=== PATIENT | female | born 1950 | race Caucasian/White ===

== ENCOUNTER 2019-03-08 12:10 | Emergency (ER) | payer OTHER, MEDICARE, MEDICAID ==
[2019-03-08] MEDS ORDERED: TYLENOL 325 MG PO STA (13:27)
--- NOTE | 2019-03-08 13:34 | ERPHSYRPT ---
- History of Present Illness Time Seen by Provider: 03/08/19 13:19 Source: patient Exam Limitations: no limitations Patient Subjective Stated Complaint: tripped on sidewalk landing on right side of face. abrasion to nose. hands scraped. no LOC dentuires intact Triage Nursing Assessment: alert and oriented with c/o falling after tripping on sidewalk. fell onto right face abrasions to bilateral hands. states dentures intact. noted old blood at mouth. large swelling to right cheel area with bruising Physician History: Pt states, she tripped on sidewalk before coming, hit her right cheek, and left thumb, not sure about LOC, denies severe headaches, nausea, vomiting, chest pain , SOB, other injury or complaints, she was ambulating. Occurred: just prior to arrival Reason for Fall: tripped Injuries/Pain Location: head, face Loss of Consciousness: brief (seconds) Quality: aching Severity of Pain-Max: mild Severity of Pain-Current: mild Modifying Factors: Improves With: nothing Associated Symptoms (Fall): denies symptoms Allergies/Adverse Reactions: No Known Drug Allergies Allergy (Unverified 03/08/19 13:36) Immunizations Up to Date: No - Review of Systems Constitutional: No Symptoms Eyes: No Symptoms Ears, Nose, & Throat: Other (right cheek swelling and pain) Respiratory: No Symptoms Cardiac: No Symptoms Abdominal/Gastrointestinal: No Symptoms Genitourinary Symptoms: No Symptoms Musculoskeletal: Other (left thenar painful.) Skin: Other (abrasions, ecchymosis left thenar and right anterior knee.) Neurological: No Symptoms All Other Systems: Reviewed and Negative - Past Medical History Pertinent Past Medical History: Yes Neurological History: No Pertinent History ENT History: No Pertinent History Psycho-Social History: Anxiety - Past Surgical History Past Surgical History: Yes Neuro Surgical History: No Pertinent History Cardiac: No Pertinent History Respiratory: No Pertinent History Gastrointestinal: No Pertinent History Genitourinary: No Pertinent History Musculoskeletal: No Pertinent History Female Surgical History: No Pertinent History - Social History Smoking Status: Never smoker Exposure to second hand smoke: No Drug Use: none Patient Lives Alone: No - Female History Hx Now: No - Nursing Vital Signs Nursing Vital Signs: Initial Vital Signs Temperature 97.5 F 03/08/19 12:47 Pulse Rate 88 03/08/19 12:47 Respiratory Rate 18 03/08/19 12:47 Blood Pressure 147/81 03/08/19 12:47 O2 Sat by Pulse Oximetry 97 03/08/19 12:47 Pain Scale Pain Intensity 4 - Mabel Coma Score Best Eye Response (Raji): (4) open spontaneously Best Verbal Response (Mabel): (5) oriented Best Motor Response (Raji): (6) obeys commands Raji Total: 15 - Physical Exam General Appearance: no apparent distress Eye Exam: PERRL/EOMI, other (no double vision) ENT Exam: airway nml, other (nosebridge injury, no nosebleed), No dental injury Neck Exam: supple, trachea midline, normal alignment, normal inspection, No muscle spasm, No tenderness, No carotid bruit, No JVD Respiratory/Chest Exam: normal breath sounds, No chest tenderness, No ecchymosis , No crepitus, No rales, No rhonchi Cardiovascular Exam: normal heart sounds, regular rate/rhythm, normal peripheral pulses, No murmur, No edema, No JVD Gastrointestinal Exam: soft, normal bowel sounds, No tenderness, No distention, No mass, No guarding, No ecchymosis, No rebound, No organomegaly Back Exam: other (mild kyphosis), No CVA tenderness, No vertebral tenderness Extremity Exam: other (left thenar: superficial abrasions and mild swelling, no deformity, good distal circulation, capillary refills, right olecranon: superficial abrasions, no swelling, deoformity, normal ROM, pain free, right anterior knee: small ecchymosis, no deformity, good ROM and normal distal pulses and sensation. ) Peripheral Pulses: carotid (R): 3+, carotid (L): 3+, dorsalis-pedis (R): 2+, dorsalis-pedis (L): 2+ Neurologic Exam: alert, oriented x 3, cooperative, normal mood/affect, nml cerebellar function, No motor deficits Skin Exam: normal color, warm, dry, No rash, No petechiae, No cyanosis, No diaphoresis SpO2 Interpretation: normal SpO2: 97 O2 Delivery: Room Air - Course Nursing assessment & vital signs reviewed: Yes - Radiology Exams Right Knee X-ray Interpretation: Reviewed by me, Negative Left Hand X-ray Interpretation: Reviewed by me, Negative, Other (DJD) - CT Exams Head CT Interpretation: Tele-radiologist Report, Other (tiny petechial subarachnoid bleeds to the right frontal fissure) Maxillofacial Bones CT Interpretation: Tele-radiologist Report, Other (right anterior maxillary and nasal bone fractures) Ordered Tests: Active Orders 24 hr Category Date Time Status IV Insertion STAT Care 03/08/19 14:56 Active FACIAL BONES WO CONTRAST [CT] Stat Exams 03/08/19 13:24 Completed HAND (MINIMUM 3 VIEWS) Stat Exams 03/08/19 13:24 Completed HEAD WITHOUT CONTRAST [CT] Stat Exams 03/08/19 13:24 Completed KNEE (3 VIEWS) Stat Exams 03/08/19 13:27 Completed CBC W DIFF Stat Lab 03/08/19 15:05 Completed CMP Stat Lab 03/08/19 15:05 Completed PROTIME WITH INR Stat Lab 03/08/19 15:05 Completed PTT Stat Lab 03/08/19 15:05 Completed Medication Summary Discontinued Medications Generic Name Dose Route Start Last Admin Trade Name Freq PRN Reason Stop Dose Admin Acetaminophen 650 mg 03/08/19 13:27 03/08/19 15:30 Tylenol 325 Mg PO 03/08/19 13:28 650 mg STAT STA Administration Acetaminophen Confirm 03/08/19 15:22 Tylenol 325 Mg Administered 03/08/19 15:23 Dose 650 mg .ROUTE .ST-MED ONE Lab/Rad Data: Laboratory Result Diagrams 03/08/19 15:05 03/08/19 15:05 Laboratory Results 03/08/19 03/08/19 03/08/19 Range/Units 15:05 15:05 15:05 WBC 7.0 (4.0-10.5) K/mm3 RBC 4.10 (4.1-5.4) M/mm3 Hgb 12.6 (12.0-16.0) gm/dl Hct 39.1 (35-47) % MCV 95.4 (78-100) fl MCH 30.7 (26-32) pg MCHC 32.2 (32-36) g/dl RDW 16.3 H (11.5-14.0) % Plt Count 198 (150-450) K/mm3 MPV 10.0 H (6-9.5) fl Gran % 80.4 H (36.0-66.0) % Eos # (Auto) 0.07 (0-0.5) Absolute Lymphs (auto) 0.78 L (1.0-4.6) Absolute Monos (auto) 0.50 (0.0-1.3) Lymphocytes % 11.1 L (24.0-44.0) % Monocytes % 7.1 (0.0-12.0) % Eosinophils % 1.0 (0.00-5.0) % Basophils % 0.4 (0.0-0.4) % Absolute Granulocytes 5.63 (1.4-6.9) Basophils # 0.03 (0-0.4) PT 12.0 (9.95-12.35) SECONDS INR 1.06 (0.8-3.0) APTT 33.7 (25.3-37.0) SECONDS Sodium 140 (137-145) mmol/L Potassium 3.8 (3.5-5.1) mmol/L Chloride 106 (98-107) mmol/L Carbon Dioxide 23 (22-30) mmol/L Anion Gap 14.4 (5-15) MEQ/L BUN 7 (7-17) mg/dL Creatinine 0.75 (0.52-1.04) mg/dL Estimated GFR > 60.0 ML/MIN Glucose 95 (74-106) mg/dL Calcium 9.3 (8.4-10.2) mg/dL Total Bilirubin 0.70 (0.2-1.3) mg/dL AST 32 (14-36) U/L ALT 12 (0-35) U/L Alkaline Phosphatase 94 (38-126) U/L Serum Total Protein 7.5 (6.3-8.2) g/dL Albumin 4.3 (3.5-5.0) g/dL - Progress Progress: improved Progress Note: 03/08/19 16:15 Pt was informed about her results, called Dr Bales, Trauma surgeon in [facility], [place], discussed her findings and current condition, he accepted patient to be transferred there for further evaluation. Patient was informed and agreed, she is alert and oriented x4, understands all risks and benefits of her transfer. Counseled pt/family regarding: lab results, diagnosis, need for follow-up, rad results - Departure Departure Disposition: Transfer ([facility] ED, Accepting Physician Dr Bales, trauma Service.) Clinical Impression: Subarachnoid hemorrhage Maxillary fracture Qualifiers: Encounter type: initial encounter Fracture type: closed Laterality: right Qualified Code(s): S02.40CA - Maxillary fracture, right side, initial encounter for closed fracture Condition: Stable Critical Care Time: No Referrals: SARANYA FONTANA MD [Primary Care Provider] -
--- NOTE | 2019-03-08 14:12 | XRAY ---
Indication: Right facial pain and swelling following fall. Multiple contiguous axial images obtained through the facial bones. Sagittal and coronal reformatted images obtained. Comparison: None Patient is edentulous. Anterior wall of the right maxillary sinus and right nasal bone demonstrates minimally depressed fractures with overlying soft tissue swelling. Small fluid/blood leveling in the right maxillary sinus. No other acute fracture, suspicious bony lesions, or radiopaque foreign body. Orbits including roof, guerrero, and floors intact. Remaining paranasal sinuses and nasal passages are clear. Mild nasal septal deviation to the right. Oronasopharynx clear. Mild bilateral scattered carotid calcifications. Remaining visualized noncontrasted soft tissues unremarkable. Visualized cervical spine intact with mild atlantoaxial degenerative changes. Impression: 1. Right maxillary sinus anterior wall and right nasal bone minimally depressed fractures with overlying soft tissue swelling and right maxillary sinus fluid/blood leveling. 2. Incidental nasal septal deviation and scattered carotid calcifications. CT DI 59.47
--- NOTE | 2019-03-08 14:13 | XRAY ---
Indication: Right facial pain and swelling following fall. Multiple contiguous axial images obtained through the head without contrast. Comparison: None Right mid parietal lobe near the vertex demonstrates curvilinear subarachnoid petechial hemorrhage in the central fissure measuring 1.5 cm in length and 3-4 mm thickness. No mass effect or midline shifting. Fourth ventricle is midline without hydrocephalus. Velasquez-white matter differentiation preserved. Bony calvarium intact. Partial opacification of the right mastoid air cells presumed inflammatory. CT facial bones reported separately. Impression: 1. Tiny subarachnoid petechial hemorrhage in the right central fissure as detailed without mass effect. 2. Partial opacification right mastoid air cells presumed inflammatory. CT DI 49.85
--- NOTE | 2019-03-08 14:14 | XRAY ---
Indication: Pain following fall. Comparison: None 3 views of the right knee demonstrates mild osteopenia and mild medial joint space narrowing/spurring. No other bony, articular, or soft tissue abnormalities.
--- NOTE | 2019-03-08 14:18 | XRAY ---
Indication: Pain following fall. Comparison: None 3 views of the left hand demonstrates mild osteopenia, minimal degenerative changes all IP joints, and moderate degenerative changes 1st metacarpal multangular scaphoid articulation. No other bony, articular, or soft tissue abnormalities.
[2019-03-08 15:22] LABS: BASOPHIL % 0.4 % (0.0-0.4); Basophil (Absolute #) 0.03 (0-0.4); Eosinophil (Absolute #) 0.07 (0-0.5); Granulocyte Absolute (ANC) 5.63 (1.4-6.9); Granulocytes % 80.4 % (36.0-66.0); Hematocrit 39.1 % (35-47); Hemoglobin 12.6 gm/dl (12.0-16.0); Lymphocyte (Absolute #) 0.78 (1.0-4.6); Lymphocytes % 11.1 % (24.0-44.0); Mean Cell Volume 95.4 fl (78-100); Mean Corpuscular Hemoglobin 30.7 pg (26-32); Mean Corpuscular Hgb Concent. 32.2 g/dl (32-36); Monocytes % 7.1 % (0.0-12.0); Platelet Count 198 K/mm3 (150-450); Red Cell Distribution Width 16.3 % (11.5-14.0)
[2019-03-08] MEDS ORDERED: TYLENOL 325 MG ONE (15:22)
[2019-03-08 15:28] LABS: INR 1.06 (0.8-3.0)
[2019-03-08 15:30] LABS: PTT 33.7 SECONDS (25.3-37.0)
[2019-03-08 15:33] LABS: ALBUMIN 4.3 g/dL (3.5-5.0); ALKALINE PHOSPHATASE 94 U/L (38-126); ANION GAP 14.4 MEQ/L (5-15); BLOOD UREA NITROGEN 7 mg/dL (7-17); CHLORIDE 106 mmol/L (98-107); Calcium 9.3 mg/dL (8.4-10.2); Carbon Dioxide 23 mmol/L (22-30); Creatinine 1 0.75 mg/dL (0.52-1.04); Glucose 95 mg/dL (74-106); Potassium 3.8 mmol/L (3.5-5.1); SGOT/AST 32 U/L (14-36); SGPT/ALT 12 U/L (0-35); SODIUM 140 mmol/L (137-145); Total Protein 7.5 g/dL (6.3-8.2)
[2019-03-08 16:32] VITALS: BP 162/69
[2019-03-08 17:05] VITALS: PULSE 77; O2SAT 98
== END 2019-03-08 17:06 | disposition short-term general hospital (02) ==
LOC: ED 12:10
DX: S06.6X0A Traumatic subarachnoid hemorrhage without loss of consciousness, initial encounter (principal); S02.40CA Maxillary fracture, right side, initial encounter for closed fracture; S00.31XA Abrasion of nose, initial encounter; W01.198A Fall on same level from slipping, tripping and stumbling with subsequent striking against other object, initial encounter; Y93.01 Activity, walking, marching and hiking; Y92.480 Sidewalk as the place of occurrence of the external cause; Y99.9 Unspecified external cause status
CPT/HCPCS: 36000; 36415; 70450; 70486; 73130; 73562; 80053; 85025; 85610; 85730; 99284; 99285; A9270-GY

== ENCOUNTER 2020-09-07 08:33 | Day surgery (SDC) | payer MEDICARE ==
[~2020-09-07 08:33] MED LIST: Lactated Ringers 1,000 ML IV ONE; Lactated Ringers 1,000 ML IV SCH
--- NOTE | 2020-09-07 08:46 | HP ---
DATE OF SURGERY: 09/07/2020 HISTORY OF PRESENT ILLNESS: The patient is a 70 year old with upper abdominal pain for a while, worse the past few weeks. She had nausea, dry heaves and has lost 30 pounds over six months or so. She denied abdominal surgery. She denied any bloody stool. CT scan showed abnormally thick stomach. She denies any prior upper endoscopy. PAST MEDICAL HISTORY: Anxiety. PAST SURGICAL HISTORY: She denied any abdominal surgery. MEDICATIONS: Sertraline, Pepcid. ALLERGIES: NKDA. FAMILY HISTORY: Negative for lymphoma. Negative for stomach cancer. There is some other types of cancer and diabetes in the family. SOCIAL HISTORY: No smoking or alcohol abuse. REVIEW OF SYSTEMS: Fourteen systems reviewed. No chest pain or palpitations. Other systems negative or noncontributory as above and per preadmission questionnaire. PHYSICAL EXAMINATION: GENERAL: No acute distress. HEENT: Sclerae nonicteric. NECK: No JVD. CHEST: Equal excursion, nonlabored breathing. CVS: Regular rate and rhythm. ABDOMEN: Soft, mild tenderness epigastrium. No peritoneal signs. EXTREMITIES: No significant edema. NEURO: Alert, oriented, moving extremities symmetrically. No gross motor deficits noted. PSYCH: Appropriate mood and affect. LAB DATA AND TESTS: CT scan showed posterior gastric wall thickening worrisome for possible mass versus incomplete distention. It is up to 2.5 cm thick. IMPRESSION: Upper abdominal pain, nausea, dry heaves, weight loss, abnormally thickened stomach on CT scan. The patient needs EGD possible biopsy for further evaluation. Risks and benefits explained in detail including but not limited to bleeding or infection, risk of bowel injury or perforation possibly requiring open procedure, risk of missed or nondiagnosis or incomplete exam possibly requiring barium swallow, other studies or procedures but not limited to. She understands and agrees to the planned procedure and will proceed with outpatient EGD with possible biopsy.
[2020-09-07] MEDS ORDERED: DIPRIVAN 200 MG/20 ML IV ONE (10:39)
[2020-09-07] MEDS ORDERED: Lactated Ringers 1,000 ML IV ONE (11:01)
[2020-09-07 11:34] VITALS: O2SAT 99
[2020-09-07 11:37] VITALS: BP 127/72; PULSE 62
--- NOTE | 2020-09-08 07:58 | OP ---
SURGERY DATE/TIME: 09/07/2020 1043 PREOPERATIVE DIAGNOSES: 1) History of thickened gastric wall on CT scan. 2) Weight loss. POSTOPERATIVE DIAGNOSES: 1) Large ulcerated proximal gastric mass. 2) Gastritis. PROCEDURES: 1) EGD with cold biopsy of small bowel for path. 2) Cold biopsy of the antrum for Helicobacter pylori. 3) Cold biopsy distal esophagus to about 38 cm as well as gastroesophageal junction at about 40 cm. 4) Multiple biopsies of very large ulcerated gastric mass proximal stomach extending from mid stomach and up towards the gastroesophageal junction. Multiple cold biopsies taken. SURGEON: Dr. Neto Schultz. ANESTHESIA: MAC. ESTIMATED BLOOD LOSS: Minimal. INDICATIONS: As noted above. Risks and benefits explained in detail and not limited to and consent obtained. DESCRIPTION OF PROCEDURE AND FINDINGS: The patient is taken to the operating room. MAC anesthesia introduced. After official time out and no disagreement with planned procedure, bite block positioned. Video gastroscope easily passed down the esophagus. The gastroesophageal junction about 40 cm. In the stomach through the patent pylorus to the junction of the second and third portion of the duodenum. Proximal duodenum grossly unremarkable. No signs of ulcers or masses. Cold biopsy taken. Good hemostasis noted. The scope pulled back into the stomach. He had some mild gastritis distal stomach. Cold biopsy taken to evaluate for Helicobacter pylori. Good hemostasis noted. On retroflex there is a large ulcerated gastric mass suspicious for carcinoma seems limited to the stomach up towards the gastroesophageal junction. Multiple cold biopsies taken of this for path. The scope was then pulled up to gastroesophageal junction. Gastroesophageal junction multiple cold biopsies were taken for path evaluation there as well as further up in the esophagus. Gastroesophageal junction about 40 cm. Additional cold biopsies taken about 38 cm. The patient tolerated the procedure well. There were no immediate complications. There was no family here to discuss the findings with.
== END 2020-09-07 11:40 | disposition home or self-care (01) ==
LOC: SDC 08:33
PROVIDERS: ATTEND Surgery
DX: C83.33 Diffuse large B-cell lymphoma, intra-abdominal lymph nodes (principal); R63.4 Abnormal weight loss; K29.70 Gastritis, unspecified, without bleeding
CPT/HCPCS: 88341; 88342; J2704